=== PATIENT | male | born 1980 ===

== ENCOUNTER 2018-04-08 20:03 | Emergency (ER) | payer SELFPAY ==
[2018-04-08] MEDS ORDERED: cefTRIAXone (Rocephin) 250 mg Inj IM STA (20:49)
[2018-04-08 21:07] LABS: URINE BACTERIA RARE (<OCC); URINE BILIRUBIN NEGATIVE (NEGATIVE); URINE BLOOD NEGATIVE (NEGATIVE); URINE CLARITY CLOUDY (Clear); URINE COLOR YELLOW (YELLOW); URINE GLUCOSE (UA) NEG (Normal); URINE LEUKOCYTE ESTERASE LARGE Leu/uL (Negative); URINE PROTEIN NEGATIVE (NEGATIVE); URINE UROBILINOGEN 0.2-1.0 mg/dL (0.2-1.0)
--- NOTE | 2018-04-08 21:38 | ED PDOC ---
HPI: Male Pain Time Seen by Provider: 04/08/18 20:12 Chief Complaint (Nursing): Male Genitourinary Chief Complaint (Provider): Dysuria History Per: Patient History/Exam Limitations: no limitations Onset/Duration Of Symptoms: Other (2 weeks) Current Symptoms Are (Timing): Still Present Associated Symptoms: Nausea (some). denies: Fever, Chills, Diarrhea Additional Complaint(s): 38 year old male presented to ED with complaints of dysuria which has worsened since onset of 2 weeks. Patient indicates whitish penile discharge along with lower abdominal and testicular pain and some nausea. He admits for having sex with a new partner 3 weeks ago. Denies fever, diarrhea, or chills. PCP: none provided Past Medical History Reviewed: Historical Data, Nursing Documentation, Vital Signs Vital Signs: Last Vital Signs Temp 98 F 04/08/18 20:11 Pulse 69 04/08/18 20:11 Resp 20 04/08/18 20:11 BP 147/99 H 04/08/18 20:11 Pulse Ox 98 04/08/18 20:11 - Medical History PMH: No Chronic Diseases - Surgical History Surgical History: No Surg Hx - Family History Family History: States: Unknown Family Hx - Social History Current smoker - smoking cessation education provided: No Alcohol: Social Drugs: Denies - Home Medications Home Medications: Ambulatory Orders Medication Instructions Recorded Ciprofloxacin HCl [Cipro] 250 mg PO BID #14 tab 04/08/18 Ibuprofen [Motrin Tab] 600 mg PO Q8 PRN #60 tab 04/08/18 - Allergies Allergies/Adverse Reactions: Allergies Allergy/AdvReac Type Severity Reaction Status Date / Time No Known Allergies Allergy Verified 04/08/18 20:09 Review of Systems ROS Statement: Except As Marked, All Systems Reviewed And Found Negative Constitutional: Negative for: Fever, Chills Gastrointestinal: Positive for: Nausea (some ), Abdominal Pain. Negative for: Diarrhea Genitourinary Male: Positive for: Dysuria, Other (testicular pain) Physical Exam - Reviewed Nursing Documentation Reviewed: Yes Vital Signs Reviewed: Yes - Physical Exam Appears: Positive for: Well, Non-toxic, No Acute Distress Skin: Positive for: Warm, Dry Gastrointestinal/Abdominal: Positive for: Soft. Negative for: Mass, Distended, Guarding, Rebound Male Genital Exam: Positive for: normal genitalia, other (Station Engineer Chief: Shayne EDT ). Negative for: bleeding, erythema, lesions, urethral discharge Lymphatic: Negative for: Inguinal Node Tenderness - ECG O2 Sat by Pulse Oximetry: 98 (RA) Pulse Ox Interpretation: Normal Medical Decision Making Medical Decision Making: Initial Impression: Dysuria, penile discharge, recent sexual contact Differentials include but limited to STI, UTI, cystitis Initial Plan: Chlamydia/GC Rna, TMA Azithromycin 1000mg PO Rocephin 250mg IM Urine culture HIV rapid Patient treated for Chlamydia and gonorrhea. Patient asked for concern for HIV but denies any concerns. 21:34 Patient does want HIV test done but declines any prophylactic medicine for HIV prevention. Scribe Attestation: Documented by Abisai Shore acting as a scribe for Julita Adkins MD. Provider Scribe Attestation: All medical record entries made by the Scribe were at my direction and personally dictated by me. I have reviewed the chart and agree that the record accurately reflects my personal performance of the history, physical exam, medical decision making, and the department course for this patient. I have also personally directed, reviewed, and agree with the discharge instructions and disposition. Disposition - Clinical Impression Clinical Impression: Urinary tract infection, Urethritis - Disposition Referrals: [facility] [Outside] - 04/12/18 Disposition: Routine/Home Disposition Time: 22:30 Condition: STABLE Prescriptions: Ciprofloxacin HCl [Cipro] 250 mg PO BID #14 tab Ibuprofen [Motrin Tab] 600 mg PO Q8 PRN #60 tab PRN Reason: Pain, Moderate (4-7) Instructions: Urinary Tract Infection, Adult (DC), Urethritis (DC) Forms: [employer] (Macedonian) Print Language: TRISTANIAN
[2018-04-08 22:33] VITALS: BP 130/82; PULSE 71; RESP 15; TEMP 98.4
[2018-04-08 23:23] VITALS: O2SAT 98
== END 2018-04-08 22:33 | disposition home or self-care (01) ==
LOC: H.ER 20:03
DX: N39.0 Urinary tract infection, site not specified (principal); N34.2 Other urethritis
CPT/HCPCS: 81003; 87086; 87390; 87491; 87591; 96372; 99283; J0696